=== PATIENT | male | born 1950 ===

== ENCOUNTER 2019-10-01 17:00 | Inpatient (IN) ==
[2019-10-01] MEDS ORDERED: IOPAMIDOL 100 ML BOTTLE IV ONE (17:01)
[2019-10-01] MEDS ORDERED: ASPIRIN 81 MG TAB.CHEW CHEWED ONE ×2 (17:15→17:17)
[2019-10-01] MEDS ORDERED: NITROGLYCERIN 0.4 MG TAB.SUBL SL PRN ×2 (17:15→21:46)
[2019-10-01] MEDS ORDERED: 0.9 % SODIUM CHLORIDE 1,000 ML IV ONE (17:15)
[2019-10-01] MEDS ORDERED: ASPIRIN 81 MG TAB.CHEW ONE (17:18)
--- NOTE | 2019-10-01 17:18 | Emergency Department Note ---
Chest Pain HPI General Chief Complaint: Chest Pain Stated Complaint: Chest pain Time Seen by Provider: 10/01/19 17:05 Source: patient and family Mode of arrival: wheelchair Limitations: no limitations History of Present Illness HPI Narrative: Narrative: 69-year-old male with a 2-day history of chest pain that started yesterday. No history of heart disease but he does have COPD and history of lung cancer. He had part of his right upper lobe taken out for that lung cancer. He sees the [facility] for primary care. He denies fever but does note shortness of breath. No GI symptoms. He is a type II diabetic but is not on insulin. He quit smoking 5 years ago Related Data Home Medications Medication Instructions Recorded Confirmed albuterol sulfate 2 puff INHALATION Q6H PRN 10/01/19 10/02/19 amlodipine 10 mg PO QDAY 10/01/19 10/02/19 aspirin 81 mg PO QDAY 10/01/19 10/02/19 atorvastatin 40 mg PO QHS 10/01/19 10/02/19 cholecalciferol (vitamin D3) 25 mcg PO QDAY 10/01/19 10/02/19 fluoxetine 20 mg PO QDAY 10/01/19 10/02/19 ipratropium-albuterol 3 ml INHALATION Q6H PRN 10/01/19 10/02/19 lisinopril 10 mg PO QDAY 10/01/19 10/02/19 metformin 500 mg PO BID 10/01/19 10/02/19 mometasone [Asmanex HFA] 2 puff INHALATION BID 10/01/19 10/02/19 tiotropium-olodaterol [Stiolto 2 puff INHALATION Q12 10/01/19 10/02/19 Respimat] Allergies Allergy/AdvReac Type Severity Reaction Status Date / Time No Known Drug Allergies Allergy Verified 10/01/19 17:00 Review of Systems ROS Narrative: Narrative: All systems ED: reviewed and negative except as stated. FOR[facility]LY [facility] Narrative Patient History Narrative: Narrative: Medical/Surgical/Family History All Active Problems (Updated 10/01/19 @ 19:45 by Juan Jose Jacques MD) Acute exacerbation of chronic obstructive pulmonary disease (Acute) COPD (chronic obstructive pulmonary disease) (Acute) Pneumonia (Acute) Hyperglycemia due to type 2 diabetes mellitus (Acute) Surgical History (Updated 10/01/19 @ 19:26 by Juan Jose Jacques MD) History of shoulder surgery (Acute) Status post lung surgery (Acute) Social History Smoking Status: Former smoker Exam Narrative Narrative: Narrative: Anxious and tachypneic. Normocephalic atraumatic. Conjunctive are clear sclerae white nonicteric. No nasal discharge or congest ion. Oropharynx is pink and moist. Neck is supple without lymphadenopathy or thyromegaly. Heart is regular rhythm but tachycardic. I cannot hear a murmur. Lungs with diffuse subtle crackles at the bases. Abdomen is soft nontender nondistended. No peritoneal signs or guarding. No pedal edema. Alert oriented able to answer questions appropriately General Limitations: no limitations Course Vital Signs Vital signs: Vital Signs Temperature 98.8 F 10/01/19 17:00 Pulse Rate 142 H 10/01/19 17:00 Respiratory Rate 34 H 10/01/19 17:00 Blood Pressure 210/111 10/01/19 17:00 Pulse Oximetry (%) 93 10/01/19 17:00 Temperature 96.7 F L 10/02/19 07:01 Pulse Rate 85 10/02/19 07:05 Respiratory Rate 26 H 10/02/19 07:05 Blood Pressure 105/64 10/02/19 07:01 Pulse Oximetry (%) 99 10/02/19 07:05 MDM MDM Narrative Medical decision making narrative: Narrative: On initial exam patient was tachycardic and tachypneic perhaps even a little bit diaphoretic although I did not see the diaphoresis personally-his initial complaint was chest pain. He was not hypoxic however. Work-up was ordered with imaging and laboratory. For his chest pain we gave him aspirin as well as nitroglycerin. He got a single dose of nitroglycerin which he says took away the chest pain but did not help with breathing. EKG showed some ST depression but no definitive ACS Found to have elevated blood sugar to over 500 so he was started on insulin boluses with then drip to follow. He does have a history of diabetes but is not insulin-dependent prior to this. He is on IV fluids Chest x-ray showed possible left lower lobe pneumonia but he continues have significant tachypnea and tachycardia-in addition to the chest pain so CTA is ordered. This shows bilateral pneumonia. We started Zosyn He also got a dose of duo nebs for COPD. Troponin was negative After finding the pneumonia and the significantly elevated blood sugars contacted hospitalist for admission. Discussed the case with Dr. Alcazar-he agreed to accept the patient for admission Lab Data Result diagrams: 10/01/19 17:21 10/02/19 05:04 Labs: Lab Results 10/01/19 10/01/19 10/01/19 Range/Units 17:17 17:21 17:21 WBC 19.2 H (4.50-11.00) K/mcL RBC 5.05 (4.63-6.08) M/mcL Hgb 15.8 (13.7-17.5) g/dL Hct 47.0 (40.1-51.0) % MCV 93.1 (80.0-100.0) fL MCH 31.3 (26.0-34.0) pg MCHC 33.6 (31.0-36.0) g/dL RDW 12.7 (11.5-14.5) % Plt Count 333 (140-440) K/mcL MPV 11.2 H (7.4-10.4) fL Gran % 89.4 H (38.0-78.0) % Lymph % (Auto) 6.4 L (15.5-49.0) % [place]ye % (Auto) 3.9 (1.0-12.0) % Eos % (Auto) 0.1 (0.0-7.0) % Baso % (Auto) 0.2 (0.0-2.0) % Gran # 17.21 H (1.80-8.00) K/mcL Lymph # (Auto) 1.23 L (1.50-4.80) K/mcL [place] # (Auto) 0.75 (0.10-0.90) K/mcL Eos # (Auto) 0.01 (0.00-0.70) K/mcL Baso # (Auto) 0.04 (0.00-0.30) K/mcL Total Counted Seg Neutrophils % (38-78) % Band Neutrophils % (0-10) % Lymphocytes % (15-49) % Monocytes % (Manual) (1-12) % Platelet Estimate (NORMAL) RBC Morphology (NORMAL) PT (11.9-14.5) sec INR (0.9-1.1) VBG Lactic Acid 3.3 H (0.5-2.0) mmol/L Sodium 129 L (133-145) mmol/L Potassium 4.8 (3.3-5.1) mmol/L Chloride 90 L (96-108) mmol/L Carbon Dioxide 14 L (22-30) mmol/L Anion Gap 25.0 H (8-16) BUN 15 (8-23) mg/dl Creatinine 1.0 (0.7-1.2) mg/dl GFR Calculation 75 Glucose 537 H* (70-105) mg/dL Osmolality (280-300) mOSM/kg Calcium 10.2 (8.6-10.4) mg/dl Total Bilirubin 0.9 (0.0-1.0) mg/dL AST 21 (0-37) U/l ALT 44 H (0-40) U/l Alkaline Phosphatase 83 (39-117) U/L Troponin T (0-0.03) ng/ml Total Protein 8.4 (5.9-8.4) gm/dL Albumin 4.2 (3.2-5.2) gm/dL Globulin 4.2 H (2.2-3.7) gm/dL Albumin/Globulin Ratio 1.0 (1.0-2.3) Lipase 24 (7-60) U/L Beta-Hydroxybutyrate (< 0.27) mmol/L Procalcitonin (<0.10) ng/mL Urine Color Urine Appearance Urine pH (5.0-9.0) Ur Specific [place] (1.000-1.035) Urine Protein (NEG) mg/dL Urine Glucose (UA) (NEG) mg/dL Urine Ketones (NEG) mg/dL Urine Occult Blood (<0.03) mg/dL Urine Nitrate (NEG) Urine Bilirubin (NEG) mg/dL Urine Urobilinogen (NEG) mg/dL Ur Leukocyte Esterase (NEG) /uL Urine RBC (0-1) /hpf Urine WBC (0-4) /hpf Ur Squamous Epith Cells (0-4) /hpf Urine Bacteria (0) /hpf Ur Culture Indicated? 10/01/19 10/01/19 10/01/19 Range/Units 17:21 17:21 17:21 WBC (4.50-11.00) K/mcL RBC (4.63-6.08) M/mcL Hgb (13.7-17.5) g/dL Hct (40.1-51.0) % MCV (80.0-100.0) fL MCH (26.0-34.0) pg MCHC (31.0-36.0) g/dL RDW (11.5-14.5) % Plt Count (140-440) K/mcL MPV (7.4-10.4) fL Gran % (38.0-78.0) % Lymph % (Auto) (15.5-49.0) % [place] % (Auto) (1.0-12.0) % Eos % (Auto) (0.0-7.0) % Baso % (Auto) (0.0-2.0) % Gran # (1.80-8.00) K/mcL Lymph # (Auto) (1.50-4.80) K/mcL [place] # (Auto) (0.10-0.90) K/mcL Eos # (Auto) (0.00-0.70) K/mcL Baso # (Auto) (0.00-0.30) K/mcL Total Counted Seg Neutrophils % (38-78) % Band Neutrophils % (0-10) % Lymphocytes % (15-49) % Monocytes % (Manual) (1-12) % Platelet Estimate (NORMAL) RBC Morphology (NORMAL) PT (11.9-14.5) sec INR (0.9-1.1) VBG Lactic Acid (0.5-2.0) mmol/L Sodium (133-145) mmol/L Potassium (3.3-5.1) mmol/L Chloride (96-108) mmol/L Carbon Dioxide (22-30) mmol/L Anion Gap (8-16) BUN (8-23) mg/dl Creatinine (0.7-1.2) mg/dl GFR Calculation Glucose (70-105) mg/dL Osmolality (280-300) mOSM/kg Calcium (8.6-10.4) mg/dl Total Bilirubin (0.0-1.0) mg/dL AST (0-37) U/l ALT (0-40) U/l Alkaline Phosphatase (39-117) U/L Troponin T < 0.01 (0-0.03) ng/ml Total Protein (5.9-8.4) gm/dL Albumin (3.2-5.2) gm/dL Globulin (2.2-3.7) gm/dL Albumin/Globulin Ratio (1.0-2.3) Lipase (7-60) U/L Beta-Hydroxybutyrate 4.17 H (< 0.27) mmol/L Procalcitonin 0.21 (<0.10) ng/mL Urine Color Urine Appearance Urine pH (5.0-9.0) Ur Specific [place] (1.000-1.035) Urine Protein (NEG) mg/dL Urine Glucose (UA) (NEG) mg/dL Urine Ketones (NEG) mg/dL Urine Occult Blood (<0.03) mg/dL Urine Nitrate (NEG) Urine Bilirubin (NEG) mg/dL Urine Urobilinogen (NEG) mg/dL Ur Leukocyte Esterase (NEG) /uL Urine RBC (0-1) /hpf Urine WBC (0-4) /hpf Ur Squamous Epith Cells (0-4) /hpf Urine Bacteria (0) /hpf Ur Culture Indicated? 10/01/19 10/01/19 10/01/19 Range/Units 17:21 17:21 17:22 WBC (4.50-11.00) K/mcL RBC (4.63-6.08) M/mcL Hgb (13.7-17.5) g/dL Hct (40.1-51.0) % MCV (80.0-100.0) fL MCH (26.0-34.0) pg MCHC (31.0-36.0) g/dL RDW (11.5-14.5) % Plt Count (140-440) K/mcL MPV (7.4-10.4) fL Gran % (38.0-78.0) % Lymph % (Auto) (15.5-49.0) % [place]ye % (Auto) (1.0-12.0) % Eos % (Auto) (0.0-7.0) % Baso % (Auto) (0.0-2.0) % Gran # (1.80-8.00) K/mcL Lymph # (Auto) (1.50-4.80) K/mcL [place] # (Auto) (0.10-0.90) K/mcL Eos # (Auto) (0.00-0.70) K/mcL Baso # (Auto) (0.00-0.30) K/mcL Total Counted 100 Seg Neutrophils % 87 H (38-78) % Band Neutrophils % 2 (0-10) % Lymphocytes % 9 L (15-49) % Monocytes % (Manual) 2 (1-12) % Platelet Estimate Normal (NORMAL) RBC Morphology Normal (NORMAL) PT 13.6 (11.9-14.5) sec INR 1.0 (0.9-1.1) VBG Lactic Acid (0.5-2.0) mmol/L Sodium (133-145) mmol/L Potassium (3.3-5.1) mmol/L Chloride (96-108) mmol/L Carbon Dioxide (22-30) mmol/L Anion Gap (8-16) BUN (8-23) mg/dl Creatinine (0.7-1.2) mg/dl GFR Calculation Glucose (70-105) mg/dL Osmolality 325 H (280-300) mOSM/kg Calcium (8.6-10.4) mg/dl Total Bilirubin (0.0-1.0) mg/dL AST (0-37) U/l ALT (0-40) U/l Alkaline Phosphatase (39-117) U/L Troponin T (0-0.03) ng/ml Total Protein (5.9-8.4) gm/dL Albumin (3.2-5.2) gm/dL Globulin (2.2-3.7) gm/dL Albumin/Globulin Ratio (1.0-2.3) Lipase (7-60) U/L Beta-Hydroxybutyrate (< 0.27) mmol/L Procalcitonin (<0.10) ng/mL Urine Color Urine Appearance Urine pH (5.0-9.0) Ur Specific [place] (1.000-1.035) Urine Protein (NEG) mg/dL Urine Glucose (UA) (NEG) mg/dL Urine Ketones (NEG) mg/dL Urine Occult Blood (<0.03) mg/dL Urine Nitrate (NEG) Urine Bilirubin (NEG) mg/dL Urine Urobilinogen (NEG) mg/dL Ur Leukocyte Esterase (NEG) /uL Urine RBC (0-1) /hpf Urine WBC (0-4) /hpf Ur Squamous Epith Cells (0-4) /hpf Urine Bacteria (0) /hpf Ur Culture Indicated? 10/01/19 Range/Units 17:44 WBC (4.50-11.00) K/mcL RBC (4.63-6.08) M/mcL Hgb (13.7-17.5) g/dL Hct (40.1-51.0) % MCV (80.0-100.0) fL MCH (26.0-34.0) pg MCHC (31.0-36.0) g/dL RDW (11.5-14.5) % Plt Count (140-440) K/mcL MPV (7.4-10.4) fL Gran % (38.0-78.0) % Lymph % (Auto) (15.5-49.0) % [place]ye % (Auto) (1.0-12.0) % Eos % (Auto) (0.0-7.0) % Baso % (Auto) (0.0-2.0) % Gran # (1.80-8.00) K/mcL Lymph # (Auto) (1.50-4.80) K/mcL [place] # (Auto) (0.10-0.90) K/mcL Eos # (Auto) (0.00-0.70) K/mcL Baso # (Auto) (0.00-0.30) K/mcL Total Counted Seg Neutrophils % (38-78) % Band Neutrophils % (0-10) % Lymphocytes % (15-49) % Monocytes % (Manual) (1-12) % Platelet Estimate (NORMAL) RBC Morphology (NORMAL) PT (11.9-14.5) sec INR (0.9-1.1) VBG Lactic Acid (0.5-2.0) mmol/L Sodium (133-145) mmol/L Potassium (3.3-5.1) mmol/L Chloride (96-108) mmol/L Carbon Dioxide (22-30) mmol/L Anion Gap (8-16) BUN (8-23) mg/dl Creatinine (0.7-1.2) mg/dl GFR Calculation Glucose (70-105) mg/dL Osmolality (280-300) mOSM/kg Calcium (8.6-10.4) mg/dl Total Bilirubin (0.0-1.0) mg/dL AST (0-37) U/l ALT (0-40) U/l Alkaline Phosphatase (39-117) U/L Troponin T (0-0.03) ng/ml Total Protein (5.9-8.4) gm/dL Albumin (3.2-5.2) gm/dL Globulin (2.2-3.7) gm/dL Albumin/Globulin Ratio (1.0-2.3) Lipase (7-60) U/L Beta-Hydroxybutyrate (< 0.27) mmol/L Procalcitonin (<0.10) ng/mL Urine Color Straw Urine Appearance Clear Urine pH 5.0 (5.0-9.0) Ur Specific [place] 1.032 (1.000-1.035) Urine Protein 30 A (NEG) mg/dL Urine Glucose (UA) >=500 A (NEG) mg/dL Urine Ketones 20 A (NEG) mg/dL Urine Occult Blood 0.03 A (<0.03) mg/dL Urine Nitrate Neg (NEG) Urine Bilirubin Neg (NEG) mg/dL Urine Urobilinogen Neg (NEG) mg/dL Ur Leukocyte Esterase Neg (NEG) /uL Urine RBC < 1 (0-1) /hpf Urine WBC < 1 (0-4) /hpf Ur Squamous Epith Cells 0 (0-4) /hpf Urine Bacteria 0 (0) /hpf Ur Culture Indicated? No Radiology Data Radiology results reviewed: Yes I reviewed the patient's radiology results. Radiology results narrative: Chest x-ray shows left lower lung pneumonia Chest CTA was ordered for chest pain tachycardia-this shows bilateral lower lung pneumonia and underlying COPD but no PE EKG Data EKG #1: EKG attestation: Yes I reviewed and interpreted this EKG. EKG results narrative: EKG shows a rate of 136 sinus tachycardia left atrial abnormality. ST depression noted in V4 5 and 6. Inverted T waves in 1 and aVL. Discharge Plan Patient/Caregiver Discharge Instructions Pt seen by WILDLIFE CONTROL OPERATOR/PA only: No Clinical Impression: Acute exacerbation of chronic obstructive pulmonary disease Pneumonia Qualifiers: Pneumonia type: due to unspecified organism Laterality: left Lung location: lower lobe of lung Qualified Code(s): J18.9 - Pneumonia, unspecified organism Hyperglycemia due to type 2 diabetes mellitus Qualifiers: Diabetes mellitus mcc insulin use: without intermediate frame tender use Qualified Code(s): E11.65 - Type 2 diabetes mellitus with hyperglycemia Patient Disposition: Xfer As Inpt ([facility]) Discharge Date/Time: 10/01/19 21:51
--- NOTE | 2019-10-01 17:36 | XRay Report ---
HISTORY: Chest pain FINDINGS: There is a small alveolar infiltrate at the left lung base. It is located Behind the heart and above the diaphragm. This is new since 05/05/08. Subtle increased interstitial lung markings are present medially in the right lung base. The mid and upper lung ramos are clear. The heart size is normal. The aorta is mildly tortuous. No pleural effusion is present. IMPRESSION: Small left lower lobe infiltrate which may be pneumonia Interpreted and Authenticated by: Cole, Jaime 10/01/19
[2019-10-01] MEDS ORDERED: IPRATROPIUM/ALBUTEROL 3 ML AMPUL.NEB NEB ONE (18:14)
[2019-10-01] MEDS ORDERED: PIPERACILLIN SODIUM/TAZOBACTAM 3.375 GM in DEXTROSE 5% IN WATER 50 ML IV ONE (18:14)
[2019-10-01 18:23] LABS: Basophils # (Auto) 0.04 K/mcL (0.00-0.30); Basophils % (Auto) 0.2 % (0.0-2.0); Eosinophils # (Auto) 0.01 K/mcL (0.00-0.70); Eosinophils % (Auto) 0.1 % (0.0-7.0); Granulocytes % (Auto) 89.4 % (38.0-78.0); Hemoglobin 15.8 g/dL (13.7-17.5); Lymphocytes # (Auto) 1.23 K/mcL (1.50-4.80); Lymphocytes % (Auto) 6.4 % (15.5-49.0); Mean Cell Volume 93.1 fL (80.0-100.0); Mean Corpuscular HGB Conc 33.6 g/dL (31.0-36.0); Mean Platelet Volume 11.2 fL (7.4-10.4); Monocytes # (Auto) 0.75 K/mcL (0.10-0.90); Monocytes % (Auto) 3.9 % (1.0-12.0); Platelet Count 333 K/mcL (140-440); RBC 5.05 M/mcL (4.63-6.08); Red Cell Distribution Width 12.7 % (11.5-14.5); WBC 19.2 K/mcL (4.50-11.00)
[2019-10-01 18:34] LABS: Prothrombin Time 13.6 sec (11.9-14.5)
[2019-10-01 18:42] LABS: ALT/SGPT 44 U/l (0-40); AST/SGOT 21 U/l (0-37); Albumin 4.2 gm/dL (3.2-5.2); Alkaline Phosphatase 83 U/L (39-117); Bilirubin,Total 0.9 mg/dL (0.0-1.0); Blood Urea Nitrogen 15 mg/dl (8-23); Calcium 10.2 mg/dl (8.6-10.4); Carbon Dioxide 14 mmol/L (22-30); Globulin 4.2 gm/dL (2.2-3.7); Glomerular Filtration Rate 75
[2019-10-01 18:49] LABS: Chloride 90 mmol/L (96-108); Glucose 537 mg/dL (70-105)
[2019-10-01] MEDS ORDERED: INSULIN REGULAR, HUMAN 1 UNIT/0.01 ML UNIT IV ONE (18:51)
[2019-10-01] MEDS ORDERED: INSULIN REGULAR, HUMAN 50 UNIT in 0.9 % SODIUM CHLORIDE 99.5 ML IV SCH ×3 (19:15→21:46)
[2019-10-01] MEDS ORDERED: INSULIN REGULAR, HUMAN 50 UNIT in 0.9 % SODIUM CHLORIDE 99.5 ML IV ONE (19:48)
[2019-10-01] MEDS ORDERED: LABETALOL 5 MG/ML ML IV PRN ×2 (20:22→21:46)
--- NOTE | 2019-10-01 20:51 | Internal Med History&Physical ---
HPI History of Present Illness Patient information: Note initiated : 10/01/19 at 8:40 pm Service Date, if different from initiated Date: [] Patient: Luis Carlos Bran 69 y/o M admitted on for Chest pain. Chief Complaint: [] History of present illness: Mr. Bran is a 69 year old M prsents to the ED with pains of anterior chest pain across entire chest wall rating to back and shortness of breath progressing for last 3 days States the chest pain is sharp and worsened with his cough. He has a chronic cough, but the quality of such has not changed. In the ED with oxygen and subsiding of cough his chest pain improved. She is obtained from him and his who states that he typically struggles with oxygen and was going to be evaluated for home oxygen but this was unusual and that it continued to progress and get worse and with each day. In the ED he was found to be hypertensive, tachycardic, and tachypneic in the ED. Was placed on several liters of oxygen in the ED. Patient did miss his blood pressure medication today. He does not adhere to a diabetic diet, his blood sugars commonly in the 300s. He is on metformin daily. He did have an episode of nausea vomiting x1 while in the car riding over here and felt it was related to motion sickness. Currently has no nausea. Does have occasional headaches. Does have chills but no fevers. Troponin was unremarkable. EKG showed sinus tach and did have some depression in anterior lateral leads. No old EKGs to compare. CTA of the chest showed no PE but did show bilateral lower lobe pneumonia greater on the left. He does have a history of COPD and lung cancer but is not on oxygen at home. As mentioned above is being evaluated outpatient for oxygen. He was also found to have a leukocytosis and an acidosis with elevated lactate 3.3. Also elevated beta hydroxybutyric acid and a blood glucose of 535. ABG had a normal pH. Review of Systems: Positives as above. Denies fever/abdominal pain/diarrhea. Remaining 10 point review of system reviewed negative. PFSH PFS Surgical History (Updated 10/01/19 @ 19:26 by Juan Jose Jacques MD) History of shoulder surgery (Acute) Status post lung surgery (Acute) Social History (Updated 10/01/19 @ 20:45 by Ziggy Reinaldo [place], DO) smoking status: Former smoker additional history: Past medical history: Diabetes COPD follows with Dr. 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 Depression Past surgical history: Resection of lung cancer right lung surgery of the shoulder Family history: Mother breast cancer Father diabetes Social history: Patient quit smoking 5 years ago Denies alcohol use Lives at home [facility] MEDS/ALLERGIES Home Medications and Allergies Home Medications Medication Instructions Recorded Confirmed Type albuterol sulfate 2 puff INHALATION Q6H PRN 10/01/19 10/01/19 History amlodipine 10 mg PO QDAY 10/01/19 10/01/19 History aspirin 81 mg PO QDAY 10/01/19 10/01/19 History atorvastatin 40 mg PO QHS 10/01/19 10/01/19 History cholecalciferol (vitamin D3) 25 mcg PO QDAY 10/01/19 10/01/19 History fluoxetine 20 mg PO QDAY 10/01/19 10/01/19 History ipratropium-albuterol 3 ml INHALATION Q6H PRN 10/01/19 10/01/19 History lisinopril 10 mg PO QDAY 10/01/19 10/01/19 History metformin 500 mg PO BID 10/01/19 10/01/19 History mometasone [Asmanex HFA] 2 puff INHALATION BID 10/01/19 10/01/19 History tiotropium-olodaterol [Stiolto 2 puff INHALATION Q12 10/01/19 10/01/19 History Respimat] Allergies Allergy/AdvReac Type Severity Reaction Status Date / Time No Known Drug Allergies Allergy Verified 10/01/19 17:00 EXAM Constitutional Vitals: Temp Pulse Resp BP Pulse Ox 98.8 F 128 H 33 H 172/101 97 10/01/19 17:00 10/01/19 19:39 10/01/19 19:39 10/01/19 19:39 10/01/19 19:39 Exam: General: Alert, Awake, No acute Distress Eyes/N/T: EOMI, PERRL, dry MM Head/Neck: neck supple, normocephalic atraumatic CV: Tachycardic but regular, No murmurs, normal s1/s2 Pulm: severely diminished b/l, mild basilar rhonchi, no wheezing, tachypnea Abd: soft, nontender, +BS x4 Ext: no clubbing/cyanosis/edema Neuro: Alert, no focal deficits, moves all extremities, CN 2-12 grossly intact, symmetrical strength b/l upper/lower, sensations intact b/l upper/lower Skin: warm/dry DATA Data Completed and Pending Labs on day of discharge: Labs from last 24 hours 10/01/19 10/01/19 10/01/19 17:44 17:22 17:21 WBC RBC Hgb Hct MCV MCH MCHC RDW Plt Count MPV Gran % Lymph % (Auto) [place] % (Auto) Eos % (Auto) Baso % (Auto) Gran # Lymph # (Auto) [place] # (Auto) Eos # (Auto) Baso # (Auto) Total Counted Band Neutrophils % Platelet Estimate RBC Morphology PT 13.6 INR 1.0 VBG Lactic Acid Sodium Potassium Chloride Carbon Dioxide Anion Gap BUN Creatinine GFR Calculation Glucose Osmolality Pending Calcium Total Bilirubin AST ALT Alkaline Phosphatase Troponin T Total Protein Albumin Globulin Albumin/Globulin Ratio Lipase Beta-Hydroxybutyrate Procalcitonin Urine Color Pending Urine Appearance Pending Urine pH Pending Ur Specific [place] Pending Urine Protein Pending Urine Glucose (UA) Pending Urine Ketones Pending Urine Occult Blood Pending Urine Nitrate Pending Urine Bilirubin Pending Urine Urobilinogen Pending Ur Leukocyte Esterase Pending 10/01/19 10/01/19 10/01/19 17:21 17:21 17:21 WBC RBC Hgb Hct MCV MCH MCHC RDW Plt Count MPV Gran % Lymph % (Auto) [place] % (Auto) Eos % (Auto) Baso % (Auto) Gran # Lymph # (Auto) [place] # (Auto) Eos # (Auto) Baso # (Auto) Total Counted Pending Band Neutrophils % Not Reportable Platelet Estimate Pending RBC Morphology Pending PT INR VBG Lactic Acid Sodium Potassium Chloride Carbon Dioxide Anion Gap BUN Creatinine GFR Calculation Glucose Osmolality Calcium Total Bilirubin AST ALT Alkaline Phosphatase Troponin T Total Protein Albumin Globulin Albumin/Globulin Ratio Lipase Beta-Hydroxybutyrate 4.17 H Procalcitonin Pending Urine Color Urine Appearance Urine pH Ur Specific [place] Urine Protein Urine Glucose (UA) Urine Ketones Urine Occult Blood Urine Nitrate Urine Bilirubin Urine Urobilinogen Ur Leukocyte Esterase 10/01/19 10/01/19 10/01/19 17:21 17:21 17:21 WBC 19.2 H RBC 5.05 Hgb 15.8 Hct 47.0 MCV 93.1 MCH 31.3 MCHC 33.6 RDW 12.7 Plt Count 333 MPV 11.2 H Gran % 89.4 H Lymph % (Auto) 6.4 L [place] % (Auto) 3.9 Eos % (Auto) 0.1 Baso % (Auto) 0.2 Gran # 17.21 H Lymph # (Auto) 1.23 L [place] # (Auto) 0.75 Eos # (Auto) 0.01 Baso # (Auto) 0.04 Total Counted Band Neutrophils % Platelet Estimate RBC Morphology PT INR VBG Lactic Acid Sodium 129 L Potassium 4.8 Chloride 90 L Carbon Dioxide 14 L Anion Gap 25.0 H BUN 15 Creatinine 1.0 GFR Calculation 75 Glucose 537 H* Osmolality Calcium 10.2 Total Bilirubin 0.9 AST 21 ALT 44 H Alkaline Phosphatase 83 Troponin T < 0.01 Total Protein 8.4 Albumin 4.2 Globulin 4.2 H Albumin/Globulin Ratio 1.0 Lipase 24 Beta-Hydroxybutyrate Procalcitonin Urine Color Urine Appearance Urine pH Ur Specific [place] Urine Protein Urine Glucose (UA) Urine Ketones Urine Occult Blood Urine Nitrate Urine Bilirubin Urine Urobilinogen Ur Leukocyte Esterase 10/01/19 17:17 WBC RBC Hgb Hct MCV MCH MCHC RDW Plt Count MPV Gran % Lymph % (Auto) [place] % (Auto) Eos % (Auto) Baso % (Auto) Gran # Lymph # (Auto) [place] # (Auto) Eos # (Auto) Baso # (Auto) Total Counted Band Neutrophils % Platelet Estimate RBC Morphology PT INR VBG Lactic Acid 3.3 H Sodium Potassium Chloride Carbon Dioxide Anion Gap BUN Creatinine GFR Calculation Glucose Osmolality Calcium Total Bilirubin AST ALT Alkaline Phosphatase Troponin T Total Protein Albumin Globulin Albumin/Globulin Ratio Lipase Beta-Hydroxybutyrate Procalcitonin Urine Color Urine Appearance Urine pH Ur Specific [place] Urine Protein Urine Glucose (UA) Urine Ketones Urine Occult Blood Urine Nitrate Urine Bilirubin Urine Urobilinogen Ur Leukocyte Esterase A/P Narrative A/P Narrative: A: *PNA: *Acute respiratory failure: *SIRS: *Metabolic acidosis/lactic acidosis, mixed respiratory alkalosis from compensating: likely from hypoxia/dka - *DM with DKA: -only on metformin at home, A1c *Pseudohyponatremia: *HTN Urgency vs Emergency if caused ST changes on EKG: CTA chest no dissection -Chest pain MSK/pleuritic *COPD with possible exacerbation: Follows with Dr. Delgado, being evaluated outpatient for home oxygen *h/o NSCLC: *Depression: P: -Rocephin/Azithro, pending SC/BC -supp O2 wean off if able -insulin gtt, monitor electrolytes -IVF's and f/u lactate -UA -A1c -restart BP meds and prn IV - -PT/OT -ppx: Lovenox DNR Time Spent With Patient Time: Total time spent is greater than 50% in coordination of care (as documented) at patient's floor/unit and/or counseling patient:
[2019-10-01 21:20] LABS: Appearance,Urine CLEAR; Bacteria,Urine 0 /hpf (0); Bilirubin,Urine NEG (NEG); Color,Urine STRAW; Culture Indicated,Urine NO; Glucose,Urine (UA) >=500 mg/dL (NEG); Ketones,Urine 20 mg/dL (NEG); Leukocyte Esterase,Urine NEG /uL (NEG); Nitrate,Urine NEG (NEG); Protein,Urine 30 mg/dL (NEG); Specific Gravity,Urine 1.032 (1.000-1.035); Urine Blood 0.03 mg/dL (<0.03); Urine RBC < 1 /hpf (0-1); Urine Squamous Epithelial Cell 0 /hpf (0-4); Urine WBC < 1 /hpf (0-4); Urobilinogen,Urine NEG (NEG)
[2019-10-01] MEDS ORDERED: POTASSIUM CHLORIDE 40 MEQ in DEXTROSE 5% IN WATER 500 ML IV PRN ×2 (21:22→21:46)
[2019-10-01] MEDS ORDERED: MAGNESIUM SULFATE 2 GM/50 ML BAG IV PRN ×2 (21:22→21:46)
[2019-10-01] MEDS ORDERED: POTASSIUM CHLORIDE 20 MEQ TABLET PO PRN ×2 (21:22→21:46)
[2019-10-01] MEDS ORDERED: ACETAMINOPHEN 325 MG TABLET PO PRN (21:46)
[2019-10-01] MEDS ORDERED: ONDANSETRON 4 MG/2 ML VIAL IV PRN (21:46)
[2019-10-01] MEDS ORDERED: LACTATED RINGERS 1,000 ML IV SCH (21:46)
[2019-10-01 21:48] LABS: Band Neutrophils % 2 % (0-10); Lymphocytes % 9 % (15-49); Monocytes % (Manual) 2 % (1-12); Platelet Estimate NORMAL (NORMAL); RBC Morphology NORMAL (NORMAL); Segmented Neutrophils % 87 % (38-78)
[2019-10-01] MEDS: AZITHROMYCIN 500 MG in DEXTROSE 5% IN WATER 250 ML IV SCH ×2 (22:46→23:01)
[2019-10-01 22:50] LABS: ALT/SGPT 39 U/l (0-40); AST/SGOT 20 U/l (0-37); Albumin 3.7 gm/dL (3.2-5.2); Albumin/Globulin Ratio 0.9 (1.0-2.3); Alkaline Phosphatase 83 U/L (39-117); Bilirubin,Direct 0.2 mg/dL (0.0-0.3); Bilirubin,Total 0.9 mg/dL (0.0-1.0); Blood Urea Nitrogen 14 mg/dl (8-23); Calcium 9.6 mg/dl (8.6-10.4); Chloride 98 mmol/L (96-108); Glomerular Filtration Rate 60; Glucose 341 mg/dL (70-105); Lactate Dehydrogenase 191 U/L (94-250); Phosphorous 2.8 mg/dL (2.7-4.5); Triglycerides 201 mg/dl (<150); Uric Acid 5.3 mg/dL (2.5-8.0)
[2019-10-01 22:56] LABS: Carbon Dioxide 18 mmol/L (22-30)
[2019-10-01] MEDS ORDERED: INSULIN REGULAR, HUMAN 1 UNIT/0.01 ML UNIT ONE (23:12)
[2019-10-01] MEDS: LISINOPRIL 10 MG TABLET PO SCH (23:18)
[2019-10-01] MEDS: ATORVASTATIN 40 MG TABLET PO SCH (23:18)
[2019-10-01] MEDS: DOCUSATE SODIUM 100 MG CAPSULE PO SCH (23:18)
[2019-10-01] MEDS: cefTRIAXone 2 GM in DEXTROSE 5% IN WATER 50 ML IV SCH (23:34)
[2019-10-01] MEDS: cefTRIAXone 2 GM VIAL ONE (23:34)
[2019-10-01] MEDS: amLODIPine 10 MG TABLET PO SCH (23:37)
[2019-10-02 00:05] LABS: Estimated Average Glucose(eAG) 375 mg/dL; Hemoglobin A1C 14.7 % HGB (4.0-6.0)
[2019-10-02] MEDS ORDERED: cefTRIAXone 2 GM VIAL ONE (00:25)
[2019-10-02] MEDS: cefTRIAXone 2 GM VIAL ONE (00:33)
[2019-10-02] MEDS: DEXTROSE 5%-NS 1,000 ML IV SCH ×3 (01:12→12:23)
[2019-10-02] MEDS: LEVALBUTEROL 0.63 MG/3 ML AMPUL.NEB NEB SCH ×4 (01:17→19:46)
[2019-10-02] MEDS ORDERED: INSULIN REGULAR, HUMAN 1 UNIT/0.01 ML UNIT ONE (02:16)
[2019-10-02] MEDS: PANTOPRAZOLE 40 MG TABLET PO SCH (07:16)
--- NOTE | 2019-10-02 07:28 | Internal Med Progress Note ---
SUBJECTIVE Subjective Patient information: Note initiated : 10/02/19 at 7:25 am Service Date, if different from initiated Date: [] Patient: Luis Carlos Bran 69 y/o M admitted on 10/01/19 for Chest pain. Chief Complaint: [] Interval history: Narrative: Mr. Bran is a 69 year old M prsents to the ED with pains of anterior chest pain across entire chest wall rating to back and shortness of breath progressing for last 3 days States the chest pain is sharp and worsened with his cough. He has a chronic cough, but the quality of such has not changed. In the ED with oxygen and subsiding of cough his chest pain improved. She is obtained from him and his who states that he typically struggles with oxygen and was going to be evaluated for home oxygen but this was unusual and that it continued to progress and get worse and with each day. In the ED he was found to be hypertensive, tachycardic, and tachypneic in the ED. Was placed on several liters of oxygen in the ED. Patient did miss his blood pressure medication today. He does not adhere to a diabetic diet, his blood sugars commonly in the 300s. He is on metformin daily. He did have an episode of nausea vomiting x1 while in the car riding over here and felt it was related to motion sickness. Currently has no nausea. Does have occasional headaches. Does have chills but no fevers. Troponin was unremarkable. EKG showed sinus tach and did have some depression in anterior lateral leads. No old EKGs to compare. CTA of the chest showed no PE but did show bilateral lower lobe pneumonia greater on the left. He does have a history of COPD and lung cancer but is not on oxygen at home. As mentioned above is being evaluated outpatient for oxygen. He was also found to have a leukocytosis and an acidosis with elevated lactate 3.3. Also elevated beta hydroxybutyric acid and a blood glucose of 535. ABG had a normal pH. 7/2 Patient slept okay. Feeling little better today. Breathing better today deeper and decreased oxygen need. Occasional chest pain with coughing but otherwise unremarkable. Did have a fever overnight. Does not feel subjective fevers but has some c hills. I gap closed. Will start subcu insulin titrate accordingly. Hemoglobin A1c 14.7, patient is only been on metformin and does not adhere to a diabetic diet. Review of Systems: denies headache/nausea/vomiting/chest or abdominal pain/diarrhea. Otherwise see above. Constitutional Vitals: Vital Signs Temp Pulse Resp BP Pulse Ox 96.7 F L 85 26 H 105/64 99 10/02/19 07:01 10/02/19 07:05 10/02/19 07:05 10/02/19 07:01 10/02/19 07:05 Period Temp Pulse Resp BP Sys/Valdes Pulse Ox Last 24 Hr 96.7 F-99.6 F 74-142 17-51 105-210/64-135 91-100 Intake and Output 10/01/19 10/02/19 10/02/19 21:59 05:59 13:59 Intake Total 870 663 948 Output Total 250 Balance 870 663 698 Weight 96.162 kg Intake & Output: Intake & Output 10/01/19 10/02/19 10/02/19 21:59 05:59 13:59 Intake Total 870 663 948 Output Total 250 Balance 870 663 698 Weight 96.162 kg Intake: IV 870 663 948 Sodium Chloride 0.9% 1,000 ml @ 800 Wide Open IV .Q0M ONE Rx#: [id number] Zithromax 500 mg In Dextrose 5% 250 in Water 250 ml @ 250 mls/hr IV Q24H [facility] Rx#:[id number] Dextrose 5%-Ns IV Solution 1, 891 000 ml @ 180 mls/hr IV .Q5H34M [facility] Rx#:[id number] HumuLIN R 50 UNIT In Sodium 20 23 57 Chloride 0.9% 99.5 ml @ 5 UNIT/ HR 10 mls/hr IV ONCE ONE Rx#: [id number] Lactated Ringers 1,000 ml @ 180 390 mls/hr IV .Q5H34M [facility] Rx#: [id number] Zosyn 3.375 gm In Dextrose 5% 50 in Water 50 ml @ 100 mls/hr IV ONCE ONE Rx#:[id number] Output: Void Amount 250 Other: Urine Appearance Clear Urine Color Light Aurora Urine Odor Normal Exam: General: Alert, Awake, No acute Distress Eyes/N/T: EOMI, Head/Neck: neck supple, CV: RRR, No murmurs, Pulm: diminished b/l but improved, mild basilar rhonchi, mild exp wheezing b/l, prolonged exp phase Abd: soft, nontender, +BS x4 Ext: no clubbing/cyanosis/edema Neuro: Alert, no focal deficits, moves all extremities, Skin: warm/dry OBJ DATA Labs CBC & Chem 7: 10/02/19 07:42 10/02/19 05:04 Labs: Abnormal Lab Results 10/01/19 10/01/19 10/01/19 22:00 17:44 17:21 WBC MPV Gran % Lymph % (Auto) Gran # Lymph # (Auto) Seg Neutrophils % Lymphocytes % VBG Lactic Acid Sodium Chloride Carbon Dioxide 18 L Anion Gap 18.0 H Glucose 341 H Hemoglobin A1c 14.7 H Osmolality 325 H ALT Globulin 4.0 H Albumin/Globulin Ratio 0.9 L Triglycerides 201 H Beta-Hydroxybutyrate Urine Protein 30 A Urine Glucose (UA) >=500 A Urine Ketones 20 A Urine Occult Blood 0.03 A 10/01/19 10/01/19 10/01/19 17:21 17:21 17:21 WBC MPV Gran % Lymph % (Auto) Gran # Lymph # (Auto) Seg Neutrophils % 87 H Lymphocytes % 9 L VBG Lactic Acid Sodium 129 L Chloride 90 L Carbon Dioxide 14 L Anion Gap 25.0 H Glucose 537 H* Hemoglobin A1c Osmolality ALT 44 H Globulin 4.2 H Albumin/Globulin Ratio Triglycerides Beta-Hydroxybutyrate 4.17 H Urine Protein Urine Glucose (UA) Urine Ketones Urine Occult Blood 10/01/19 10/01/19 17:21 17:17 WBC 19.2 H MPV 11.2 H Gran % 89.4 H Lymph % (Auto) 6.4 L Gran # 17.21 H Lymph # (Auto) 1.23 L Seg Neutrophils % Lymphocytes % VBG Lactic Acid 3.3 H Sodium Chloride Carbon Dioxide Anion Gap Glucose Hemoglobin A1c Osmolality ALT Globulin Albumin/Globulin Ratio Triglycerides Beta-Hydroxybutyrate Urine Protein Urine Glucose (UA) Urine Ketones Urine Occult Blood Meds: Medications Acetaminophen (Tylenol) 650 mg PO Q4-6HP PRN PRN Reason: PAIN/FEVER > 101 Amlodipine Besylate (Norvasc) 10 mg PO QDAY [facility] Last Admin: 10/01/19 23:37 Dose: Not Given Documented by: Aspirin (Aspirin) 81 mg PO DAILY [facility] Atorvastatin Calcium (Lipitor) 40 mg PO QHS [facility] Last Admin: 10/01/19 23:18 Dose: Not Given Documented by: Budesonide (Pulmicort) 0.5 mg NEB Q12 [facility] Diagnostic Test (Pha) (Accu-Chek) 1 each FS Q1 [facility] Last Admin: 10/02/19 06:59 Dose: 1 each Documented by: Docusate Sodium (Colace) 100 mg PO BID [facility] Last Admin: 10/01/19 23:18 Dose: Not Given Documented by: Enoxaparin Sodium (Lovenox) 40 mg SQ DAILY [facility] Fluoxetine HCl (Prozac) 20 mg PO DAILY [facility] Magnesium Sulfate (Magnesium Sulfate) 2 gm in 50 mls @ 50 mls/hr IV UD PRN PRN Reason: Magnesium </= 1.6 Potassium Chloride 40 meq/ (Dextrose) 520 mls @ 130 mls/hr IV UD PRN PRN Reason: Potassium < 3 Insulin Human Regular 50 unit/ (Sodium Chloride) 100 mls @ 2 mls/hr IV DUR [facility]; Protocol Ceftriaxone Sodium 2 gm/ (Dextrose) 50 mls @ 100 mls/hr IV Q24H [facility]; Protocol Last Admin: 10/01/19 23:34 Dose: Not Given Documented by: Azithromycin 500 mg/ Dextrose 250 mls @ 250 mls/hr IV Q24H [facility]; Protocol Stop: 10/03/19 21:59 Last Infusion: 10/02/19 00:17 Dose: Infused Documented by: Dextrose/Sodium Chloride (Dextrose 5%-Ns Iv Solution) 1,000 mls @ 180 mls/hr IV .Q5H34M [facility] Stop: 10/04/19 10:00 Last Admin: 10/02/19 06:09 Dose: 180 mls/hr Documented by: Labetalol HCl (Trandate) 0 mg IV Q2HP PRN PRN Reason: Hypertension Levalbuterol HCl (Xopenex) 0.63 mg NEB Q6HRT [facility] Last Admin: 10/02/19 01:17 Dose: 0.63 mg Documented by: Lisinopril (Zestril) 10 mg PO QDAY [facility] Last Admin: 10/01/19 23:18 Dose: Not Given Documented by: Nitroglycerin (Nitrostat) 0.4 mg SL Q5M PRN PRN Reason: Chest Pain Ondansetron HCl (Zofran) 4 mg IV Q4-6HP PRN PRN Reason: Nausea And Vomiting Pantoprazole Sodium (Protonix) 40 mg PO QAMAC [facility] Last Admin: 10/02/19 07:16 Dose: 40 mg Documented by: Mometasone [Asmanex (Hfa] Inhaler) 2 dose INH BID JON Tiotropium- Olodaterol [Stiolto Respimat] Inh 2 dose INH Q12 [facility] Potassium Chloride (Kdur) 40 meq PO UD PRN PRN Reason: Potssium is 3-3.5 A/P Narrative A/P Narrative: A: *PNA: *SIRS: improved *Acute respiratory failure: -taken off O2 this morning while in bed, will monitor closely for O2 need *AECOPD with possible exacerbation: Follows with Dr. Delgado, being evaluated outpatient for home oxygen *Metabolic acidosis/lactic acidosis, mixed respiratory alkalosis from compensating: likely from hypoxia/dka -resolved *DM with DKA: A1c 14.7 -only on metformin at home, A1c *Pseudohyponatremia: resolved *HTN Urgency vs Emergency if caused ST changes on EKG(ekg changes normalized on f/u): CTA chest no dissection -Chest pain MSK/pleuritic. pt did miss taking home meds on morning of admit -troponin negative -Improved *h/o NSCLC: *Depression: P: -Rocephin/Azithro, pending SC/BC -supp O2 wean prn, RT to asses for home O2 while ambulating prior to d/c -Steroids(wean), nebs, home IH's -IS/Acapella -insulin gtt off to SQ(titrate), cont metformin, -d/c ivf -restarted BP meds and prn IV -f/u ekg -PT/OT -ppx: Lovenox DNR Time Spent With Patient Time: Total time spent is greater than 50% in coordination of care (as documented) at patient's floor/unit and/or counseling patient:
--- NOTE | 2019-10-02 07:47 | Cat Scan Report ---
History: Chest pain, tachycardia and shortness of breath TECHNIQUE: The chest was imaged during pulmonary arterial phase following injection of intravenous nonionic contrast. Sagittal, coronal and axial MIPS images were created. The radiation exposure was limited using dose reduction technology. FINDINGS: The pulmonary arteries are normal with no intraluminal filling defects. The aorta is normal in caliber with no aneurysm or dissection. There are multiple calcified plaques along the wall of the aorta is also several plaques in the coronary arteries. The heart size is normal. Patient has mild emphysema throughout both lungs with the greatest involvement in the upper lobes. Superimposed upon this there are patchy alveolar infiltrates in the lingula and left lower lobe with milder involvement in the medial basal segment of the right lower lobe. There are also a few bands of scar tissue in both lungs. There is no evidence of pulmonary mass. No pleural effusions present. There are several small reactive lymph nodes in the mediastinum. Mild bronchial wall thickening is present in the hilar region bilaterally due to chronic bronchitis. No intrabronchial mass or mucous plugging are seen. Moderate generalized fatty infiltration is present in the liver. There stranding of the perirenal fat bilaterally but no hydronephrosis. IMPRESSION: Emphysema and pneumonia No evidence of pulmonary emboli Dr. Jacques was called with the results Interpreted and Authenticated by: Jaime Galvan 10/02/19
[2019-10-02 07:50] LABS: ALT/SGPT 29 U/l (0-40); AST/SGOT 16 U/l (0-37); Albumin 3.3 gm/dL (3.2-5.2); Alkaline Phosphatase 72 U/L (39-117); Bilirubin,Total 0.4 mg/dL (0.0-1.0); Blood Urea Nitrogen 13 mg/dl (8-23); Calcium 8.9 mg/dl (8.6-10.4); Carbon Dioxide 21 mmol/L (22-30); Chloride 104 mmol/L (96-108); Globulin 3.3 gm/dL (2.2-3.7); Glomerular Filtration Rate 86; Glucose 164 mg/dL (70-105); Lactate Dehydrogenase 180 U/L (94-250); Phosphorous 2.6 mg/dL (2.7-4.5); Triglycerides 174 mg/dl (<150); Uric Acid 4.9 mg/dL (2.5-8.0)
[2019-10-02 08:02] LABS: Bilirubin,Direct < 0.2 mg/dL (0.0-0.3)
[2019-10-02] MEDS ORDERED: DEXTROSE 50% 50 ML VIAL IV PRN (08:50)
[2019-10-02] MEDS ORDERED: DEXTROSE 31 GM ORAL.SUSP PO PRN (08:50)
[2019-10-02 08:51] LABS: Hemoglobin 12.4 g/dL (13.7-17.5); Mean Cell Volume 94.6 fL (80.0-100.0); Mean Corpuscular HGB Conc 33.5 g/dL (31.0-36.0); Mean Platelet Volume 10.5 fL (7.4-10.4); Platelet Count 257 K/mcL (140-440); RBC 3.91 M/mcL (4.63-6.08); Red Cell Distribution Width 13.1 % (11.5-14.5); WBC 14.7 K/mcL (4.50-11.00)
[2019-10-02] MEDS ORDERED: INSULIN GLARGINE, HUMAN 1 UNIT/0.01 ML SQ SCH (09:00)
[2019-10-02] MEDS ORDERED: MOMETASONE INH SCH (09:00)
[2019-10-02] MEDS ORDERED: ASPIRIN 81 MG TAB.CHEW PO SCH (09:00)
[2019-10-02] MEDS ORDERED: ENOXAPARIN 40 MG/0.4 ML SYRINGE SQ SCH (09:00)
[2019-10-02] MEDS ORDERED: FLUoxetine HCL 20 MG CAPSULE PO SCH (09:00)
[2019-10-02] MEDS: BUDESONIDE 0.5 MG/2 ML AMPUL.NEB NEB SCH ×2 (09:11→19:46)
[2019-10-02 09:16] LABS: Lymphocytes % 22 % (15-49); Monocytes % (Manual) 4 % (1-12); Platelet Estimate NORMAL (NORMAL); RBC Morphology NORMAL (NORMAL); Segmented Neutrophils % 74 % (38-78)
[2019-10-02] MEDS: LISINOPRIL 10 MG TABLET PO SCH (09:32)
[2019-10-02] MEDS: DOCUSATE SODIUM 100 MG CAPSULE PO SCH ×2 (09:32→20:37)
[2019-10-02] MEDS: amLODIPine 10 MG TABLET PO SCH (09:32)
[2019-10-02] MEDS: methylPREDNISolone SOD SUCC 125 MG/2 ML VIAL IV SCH ×2 (09:33→20:37)
[2019-10-02] MEDS: metFORMIN 500 MG TABLET PO SCH ×2 (09:35→17:24)
[2019-10-02] MEDS: TIOTROPIUM OLODATEROL INH SCH ×2 (10:22→20:38)
[2019-10-02] MEDS: INSULIN LISPRO 1 UNIT/0.01 ML UNIT SQ SCH ×6 (12:27→22:45)
[2019-10-02] MEDS: cefTRIAXone 2 GM in DEXTROSE 5% IN WATER 50 ML IV SCH (14:11)
[2019-10-02] MEDS ORDERED: INSULIN GLARGINE, HUMAN 1 UNIT/0.01 ML SQ ONE ×2 (17:33→18:42)
[2019-10-02] MEDS: AZITHROMYCIN 500 MG in DEXTROSE 5% IN WATER 250 ML IV SCH (20:37)
[2019-10-02] MEDS: ATORVASTATIN 40 MG TABLET PO SCH (20:37)
[2019-10-03] MEDS: INSULIN LISPRO 1 UNIT/0.01 ML UNIT SQ SCH ×7 (00:44→23:45)
[2019-10-03] MEDS: LEVALBUTEROL 0.63 MG/3 ML AMPUL.NEB NEB SCH ×4 (00:46→20:26)
[2019-10-03 06:45] LABS: ALT/SGPT 31 U/l (0-40); AST/SGOT 21 U/l (0-37); Albumin 3.5 gm/dL (3.2-5.2); Albumin/Globulin Ratio 0.9 (1.0-2.3); Alkaline Phosphatase 64 U/L (39-117); Bilirubin,Direct < 0.2 mg/dL (0.0-0.3); Bilirubin,Total 0.4 mg/dL (0.0-1.0); Blood Urea Nitrogen 17 mg/dl (8-23); Calcium 9.5 mg/dl (8.6-10.4); Carbon Dioxide 18 mmol/L (22-30); Chloride 102 mmol/L (96-108); Globulin 3.7 gm/dL (2.2-3.7); Glomerular Filtration Rate 90; Glucose 231 mg/dL (70-105); Lactate Dehydrogenase 174 U/L (94-250); Triglycerides 114 mg/dl (<150); Uric Acid 4.7 mg/dL (2.5-8.0)
[2019-10-03] MEDS: BUDESONIDE 0.5 MG/2 ML AMPUL.NEB NEB SCH ×3 (07:04→20:25)
[2019-10-03] MEDS: PANTOPRAZOLE 40 MG TABLET PO SCH (07:12)
[2019-10-03] MEDS: metFORMIN 500 MG TABLET PO SCH ×2 (07:17→17:36)
--- NOTE | 2019-10-03 07:28 | Internal Med Progress Note ---
SUBJECTIVE Subjective Patient information: Note initiated : 10/03/19 at 7:24 am Service Date, if different from initiated Date: [] Patient: Luis Carlos Bran 69 y/o M admitted on 10/01/19 for Chest pain. Chief Complaint: [] Interval history: Mr. Bran is a 69 year old M prsents to the ED with pains of anterior chest pain across entire chest wall rat ing to back and shortness of breath progressing for last 3 days States the chest pain is sharp and worsened with his cough. He has a chronic cough, but the quality of such has not changed. In the ED with oxygen and subsiding of cough his chest pain improved. She is obtained from him and his who states that he typically struggles with oxygen and was going to be evaluated for home oxygen but this was unusual and that it continued to progress and get worse and with each day. In the ED he was found to be hypertensive, tachycardic, and tachypneic in the ED. Was placed on several liters of oxygen in the ED. Patient did miss his blood pressure medication today. He does not adhere to a d iabetic diet, his blood sugars commonly in the 300s. He is on metformin daily. He did have an episode of nausea vomiting x1 while in the car riding over here and felt it was related to motion sickness. Currently has no nausea. Does have occasional headaches. Does have chills but no fevers. Troponin was unremarkable. EKG showed sinus tach and did have some depression in anterior lateral leads. No old EKGs to compare. CTA of the chest showed no PE but did show bilateral lower lobe pneumonia greater on the left. He does have a history of COPD and lung cancer but is not on oxygen at home. As mentioned above is being evaluated outpatient for oxygen. He was also found to have a leukocytosis and an acidosis with elevated lactate 3.3. Also elevated beta hydroxybutyric acid and a blood glucose of 535. ABG had a normal pH. 7 Patient slept okay. Feeling little better today. Breathing better today deeper and decreased oxygen need. Occasional chest pain with coughing but otherwise unremarkable. Did have a fever overnight. Does not feel subjective fevers but has some chills. I gap closed. Will start subcu insulin titrate accordingly. Hemoglobin A1c 14.7, patient is only been on metformin and does not adhere to a diabetic diet. 10/02 Slept well. Feeling better. On room air at rest but becomes labored and increased oxygen needs with activity. Patient wants to be evaluated for home oxygen outpatient. Blood glucose improving with up titration of insulin. Review of Systems: denies headache/fever/chills/nausea/vomiting/chest or abdominal pain/diarrhea. Otherwise see above. Constitutional Vitals: Vital Signs Temp Pulse Resp BP Pulse Ox 98.2 F 83 41 H 144/96 92 10/03/19 00:01 10/03/19 06:00 10/03/19 06:00 10/03/19 05:00 10/03/19 06:00 Period Temp Pulse Resp BP Sys/Valdes Pulse Ox Last 24 Hr 97.4 F-98.4 F 73-102 15-46 114-156/50-121 92-100 Intake and Output 10/02/19 10/03/19 10/03/19 21:59 05:59 13:59 Intake Total 1250 Output Total 800 Balance 450 Weight 98.43 kg Intake & Output: Intake & Output 10/02/19 10/03/19 10/03/19 21:59 05:59 13:59 Intake Total 1250 Output Total 800 Balance 450 Weight 98.43 kg Intake: Nourishment/Supplement quantity 480 (ml) IV 50 Rocephin 2 gm In Dextrose 5% in 50 Water 50 ml @ 100 mls/hr IV Q24H [facility] Rx#:[id number] Oral 720 Output: Void Amount 800 Other: Meal Dinner Percent of Meal Consumed 50% Feeding Ability Independent Urine Appearance Clear Urine Color Pale Urine Odor Normal Stool Size Moderate Stool Color Brown Stool Consistency Normal for Patient Soft Formed Exam: General: Alert, Awake, No acute Distress Eyes/N/T: EOMI, Head/Neck: neck supple, CV: RRR, No murmurs, Pulm: diminished b/l, mild basilar rhonchi, no wheezing today, prolonged exp phase Abd: soft, nontender, +BS x4 Ext: no clubbing/cyanosis/edema Neuro: Alert, no focal deficits, moves all extremities, Skin: warm/dry OBJ DATA Labs CBC & Chem 7: 10/02/19 07:42 10/03/19 05:03 Labs: Abnormal Lab Results 07/03/20 07/02/20 07/02/20 05:03 07:42 05:04 WBC 14.7 H RBC 3.91 L Hgb 12.4 L Hct 37.0 L MPV 10.5 H Gran % Lymph % (Auto) Gran # Lymph # (Auto) Seg Neutrophils % Lymphocytes % VBG Lactic Acid Sodium Chloride Carbon Dioxide 18 L 21 L Anion Gap Glucose 231 H 164 H Hemoglobin A1c Osmolality Phosphorus 2.0 L 2.6 L ALT Globulin Albumin/Globulin Ratio 0.9 L Triglycerides 174 H Beta-Hydroxybutyrate Urine Protein Urine Glucose (UA) Urine Ketones Urine Occult Blood 10/01/19 10/01/19 10/01/19 22:00 17:44 17:21 WBC RBC Hgb Hct MPV Gran % Lymph % (Auto) Gran # Lymph # (Auto) Seg Neutrophils % Lymphocytes % VBG Lactic Acid Sodium Chloride Carbon Dioxide 18 L Anion Gap 18.0 H Glucose 341 H Hemoglobin A1c 14.7 H Osmolality 325 H Phosphorus ALT Globulin 4.0 H Albumin/Globulin Ratio 0.9 L Triglycerides 201 H Beta-Hydroxybutyrate Urine Protein 30 A Urine Glucose (UA) >=500 A Urine Ketones 20 A Urine Occult Blood 0.03 A 10/01/19 10/01/19 10/01/19 17:21 17:21 17:21 WBC RBC Hgb Hct MPV Gran % Lymph % (Auto) Gran # Lymph # (Auto) Seg Neutrophils % 87 H Lymphocytes % 9 L VBG Lactic Acid Sodium 129 L Chloride 90 L Carbon Dioxide 14 L Anion Gap 25.0 H Glucose 537 H* Hemoglobin A1c Osmolality Phosphorus ALT 44 H Globulin 4.2 H Albumin/Globulin Ratio Triglycerides Beta-Hydroxybutyrate 4.17 H Urine Protein Urine Glucose (UA) Urine Ketones Urine Occult Blood 10/01/19 10/01/19 17:21 17:17 WBC 19.2 H RBC Hgb Hct MPV 11.2 H Gran % 89.4 H Lymph % (Auto) 6.4 L Gran # 17.21 H Lymph # (Auto) 1.23 L Seg Neutrophils % Lymphocytes % VBG Lactic Acid 3.3 H Sodium Chloride Carbon Dioxide Anion Gap Glucose Hemoglobin A1c Osmolality Phosphorus ALT Globulin Albumin/Globulin Ratio Triglycerides Beta-Hydroxybutyrate Urine Protein Urine Glucose (UA) Urine Ketones Urine Occult Blood Meds: Medications Acetaminophen (Tylenol) 650 mg PO Q4-6HP PRN PRN Reason: PAIN/FEVER > 101 Amlodipine Besylate (Norvasc) 10 mg PO QDAY [facility] Last Admin: 10/02/19 09:32 Dose: 10 mg Documented by: Aspirin (Aspirin) 81 mg PO DAILY [facility] Last Admin: 10/02/19 09:32 Dose: 81 mg Documented by: Atorvastatin Calcium (Lipitor) 40 mg PO QHS [facility] Last Admin: 10/02/19 20:37 Dose: 40 mg Documented by: Budesonide (Pulmicort) 0.5 mg NEB Q12 [facility] Last Admin: 10/02/19 19:46 Dose: 0.5 mg Documented by: Dextrose (Dextrose 50%) 0 ml IV UD PRN PRN Reason: Hypoglycemia Diagnostic Test (Pha) (Accu-Chek) 1 each FS Q4 [facility] Last Admin: 10/03/19 07:14 Dose: 1 each Documented by: Docusate Sodium (Colace) 100 mg PO BID [facility] Last Admin: 10/02/19 20:37 Dose: 100 mg Documented by: Enoxaparin Sodium (Lovenox) 40 mg SQ DAILY [facility] Last Admin: 10/02/19 09:33 Dose: 40 mg Documented by: Fluoxetine HCl (Prozac) 20 mg PO DAILY [facility] Last Admin: 10/02/19 09:32 Dose: 20 mg Documented by: Glucose (Insta-Glucose) 15 gm PO PRN PRN PRN Reason: Hypoglycemia Magnesium Sulfate (Magnesium Sulfate) 2 gm in 50 mls @ 50 mls/hr IV UD PRN PRN Reason: Magnesium </= 1.6 Potassium Chloride 40 meq/ (Dextrose) 520 mls @ 130 mls/hr IV UD PRN PRN Reason: Potassium < 3 Ceftriaxone Sodium 2 gm/ (Dextrose) 50 mls @ 100 mls/hr IV Q24H [facility]; Protocol Last Infusion: 10/02/19 18:45 Dose: Infused Documented by: Azithromycin 500 mg/ Dextrose 250 mls @ 250 mls/hr IV Q24H [facility]; Protocol Stop: 10/03/19 21:59 Last Admin: 10/02/19 20:37 Dose: 250 mls/hr Documented by: Insulin Glargine (Lantus) 15 unit SQ DAILY [facility] Last Admin: 10/02/19 09:33 Dose: 15 units Documented by: Insulin Human Lispro (Humalog) 0 unit SQ Q4 [facility]; Protocol Last Admin: 10/03/19 07:17 Dose: 6 units Documented by: Labetalol HCl (Trandate) 0 mg IV Q2HP PRN PRN Reason: Hypertension Levalbuterol HCl (Xopenex) 0.63 mg NEB Q6HRT [facility] Last Admin: 10/03/19 00:46 Dose: 0.63 mg Documented by: Lisinopril (Zestril) 10 mg PO QDAY [facility] Last Admin: 10/02/19 09:32 Dose: 10 mg Documented by: Metformin HCl (Glucophage) 500 mg PO BIDCC [facility] Last Admin: 10/03/19 07:17 Dose: 500 mg Documented by: Methylprednisolone Sodium Succinate (Solu-Medrol) 62.5 mg IV Q12 [facility] Last Admin: 10/02/19 20:37 Dose: 62.5 mg Documented by: Nitroglycerin (Nitrostat) 0.4 mg SL Q5M PRN PRN Reason: Chest Pain Ondansetron HCl (Zofran) 4 mg IV Q4-6HP PRN PRN Reason: Nausea And Vomiting Pantoprazole Sodium (Protonix) 40 mg PO QAMAC [facility] Last Admin: 10/03/19 07:12 Dose: 40 mg Documented by: Tiotropium- Olodaterol [Stiolto Respimat] Inh 2 dose INH Q12 [facility] Last Admin: 10/02/19 20:38 Dose: Not Given Documented by: Potassium Chloride (Kdur) 40 meq PO UD PRN PRN Reason: Potssium is 3-3.5 Last Admin: 10/02/19 11:00 Dose: 40 meq Documented by: A/P Narrative A/P Narrative: A: *PNA: improved *SIRS: improved *Acute respiratory failure: -taken off O2 yesterday while in bed, will monitor closely for O2 need, needs with ambulation *AECOPD: Follows with Dr. Delgado, being evaluated outpatient for home oxygen *Metabolic acidosis/lactic acidosis, mixed respiratory alkalosis from compensat ing: likely from hypoxia/dka -resolved *DM with DKA: A1c 14.7 -only on metformin at home, A1c 14.7 *Pseudohyponatremia: resolved *HTN Urgency vs Emergency if caused ST changes on EKG(ekg changes normalized on f/u): CTA chest no dissection -Chest pain MSK/pleuritic/pulm. pt did miss taking home meds on morning of admit -troponin negative -Improved *h/o NSCLC: *Depression: P: -Rocephin/Azithro, pending SC/BC -supp O2 wean prn, RT to asses for home O2 while ambulating prior to d/c -Steroids(wean), nebs, home IH's -IS/Acapella -basal insulin(titrate - 30bid), cont metformin, -restarted BP meds and prn IV -PT/OT -ppx: Lovenox DNR Time Spent With Patient Time: Total time spent is greater than 50% in coordination of care (as documented) at patient's floor/unit and/or counseling patient:
[2019-10-03] MEDS ORDERED: predniSONE 20 MG TABLET PO SCH (08:00)
[2019-10-03] MEDS ORDERED: DEXTROSE 50% 50 ML VIAL IV PRN (08:06)
[2019-10-03] MEDS ORDERED: DEXTROSE 31 GM ORAL.SUSP PO PRN (08:06)
[2019-10-03] MEDS ORDERED: MAGNESIUM SULFATE 2 GM/50 ML BAG IV PRN (08:06)
[2019-10-03] MEDS ORDERED: NITROGLYCERIN 0.4 MG TAB.SUBL SL PRN (08:06)
[2019-10-03] MEDS ORDERED: POTASSIUM CHLORIDE 20 MEQ TABLET PO PRN (08:06)
[2019-10-03] MEDS ORDERED: LABETALOL 5 MG/ML ML IV PRN (08:06)
[2019-10-03] MEDS ORDERED: ACETAMINOPHEN 325 MG TABLET PO PRN (08:06)
[2019-10-03] MEDS ORDERED: ONDANSETRON 4 MG/2 ML VIAL IV PRN (08:06)
[2019-10-03] MEDS ORDERED: POTASSIUM CHLORIDE 40 MEQ in DEXTROSE 5% IN WATER 500 ML IV PRN (08:06)
[2019-10-03] MEDS ORDERED: INSULIN GLARGINE, HUMAN 1 UNIT/0.01 ML SQ SCH (09:00)
[2019-10-03] MEDS: ASPIRIN 81 MG TAB.CHEW PO SCH (09:01)
[2019-10-03] MEDS: DOCUSATE SODIUM 100 MG CAPSULE PO SCH ×2 (09:02→20:31)
[2019-10-03] MEDS: ENOXAPARIN 40 MG/0.4 ML SYRINGE SQ SCH (09:02)
[2019-10-03] MEDS: INSULIN GLARGINE, HUMAN 1 UNIT/0.01 ML SQ SCH ×2 (09:02→20:30)
[2019-10-03] MEDS: NEUTRA PHOS 1 PACKET PO SCH ×2 (09:02→20:29)
[2019-10-03] MEDS: STIOLTO RESPIMAT INH SCH ×2 (09:03→20:28)
[2019-10-03] MEDS: FLUoxetine HCL 20 MG CAPSULE PO SCH (09:03)
[2019-10-03] MEDS: amLODIPine 10 MG TABLET PO SCH (09:03)
[2019-10-03] MEDS: predniSONE 20 MG TABLET PO SCH ×2 (09:03→20:31)
[2019-10-03] MEDS: LISINOPRIL 10 MG TABLET PO SCH (09:04)
[2019-10-03] MEDS: cefTRIAXone 2 GM in DEXTROSE 5% IN WATER 50 ML IV SCH (09:05)
[2019-10-03] MEDS: ATORVASTATIN 40 MG TABLET PO SCH (20:31)
[2019-10-03] MEDS ORDERED: AZITHROMYCIN 500 MG in DEXTROSE 5% IN WATER 250 ML IV SCH (21:00)
[2019-10-03] MEDS ORDERED: INSULIN GLARGINE, HUMAN 1 UNIT/0.01 ML SQ ONE ×2 (21:14→22:06)
[2019-10-04] MEDS: LEVALBUTEROL 0.63 MG/3 ML AMPUL.NEB NEB SCH ×4 (00:47→19:47)
[2019-10-04] MEDS: INSULIN LISPRO 1 UNIT/0.01 ML UNIT SQ SCH ×5 (03:55→19:58)
[2019-10-04] MEDS: BUDESONIDE 0.5 MG/2 ML AMPUL.NEB NEB SCH ×2 (07:08→19:47)
--- NOTE | 2019-10-04 07:27 | Internal Med Progress Note ---
SUBJECTIVE Subjective Patient information: Note initiated : 10/04/19 at 7:23 am Service Date, if different from initiated Date: [] Patient: Luis Carlos Bran 69 y/o M admitted on 10/03/19 for Chest pain. Chief Complaint: [] Interval history: Narrative: : Mr. Bran is a 69 year old M prsents to the ED with pains of anterior chest pain across entire chest wall rating to back and shortness of breath progressing for last 3 days States the chest pain is sharp and worsened with his cough. He has a chronic cough, but the quality of such has not changed. In the ED with oxygen and subsiding of cough his chest pain improved. She is obtained from him and his who states that he typically struggles with oxygen and was going to be evaluated for home oxygen but this was unusual and that it continued to progress and get worse and with each day. In the ED he was found to be hypertensive, tachycardic, and tachypneic in the ED. Was placed on several liters of oxygen in the ED. Patient did miss his blood pressure medication today. He does not adhere to a diabetic diet, his blood sugars commonly in the 300s. He is on metformin daily. He did have an episode of nausea vomiting x1 while in the car riding over here and felt it was related to motion sickness. Currently has no nausea. Does have occasional headaches. Does have chills but no fevers. Troponin was unremarkable. EKG showed sinus tach and did have some depression in anterior lateral leads. No old EKGs to compare. CTA of the chest showed no PE but did show bilateral lower lobe pneumonia greater on the left. He does have a history of COPD and lung cancer but is not on oxygen at home. As mentioned above is being evaluated outpatient for oxygen. He was also found to have a leukocytosis and an acidosis with elevated lactate 3.3. Also elevated beta hydroxybutyric acid and a blood glucose of 535. ABG had a normal pH. 7 Patient slept okay. Feeling little better today. Breathing better today deeper and decreased oxygen need. Occasional chest pain with coughing but otherwise unremarkable. Did have a fever overnight. Does not feel subjective fevers but has some chills. I gap closed. Will start subcu insulin titrate accordingly. Hemoglobin A1c 14.7, patient is only been on metformin and does not adhere to a diabetic diet. 10/02 Slept well. Feeling better. On room air at rest but becomes labored and increased oxygen needs with activity. Patient wants to be evaluated for home oxygen outpatient. Blood glucose improving with up titration of insulin. 10/03 Slept better last night. Feeling better. His cough appears to be close to baseline. Shortness of breath is improving. Blood glucose still high but improving with titration of insulin. Start weaning down glucocorticoids. Review of Systems: denies headache/fever/chills/nausea/vomiting/chest or abdominal pain/. Otherwise see above. Constitutional Vitals: Vital Signs Temp Pulse Resp BP Pulse Ox 96.9 F L 83 20 142/81 98 10/04/19 03:45 10/04/19 07:16 10/04/19 07:16 10/04/19 03:45 10/04/19 07:08 Period Temp Pulse Resp BP Sys/Valdes Pulse Ox Last 24 Hr 96.9 F-98.4 F 75-105 16-27 125-168/69-99 94-100 Intake and Output 10/03/19 10/04/19 10/04/19 21:59 05:59 13:59 Intake Total 750 375 Output Total 576 400 Balance 174 -25 Weight 97.976 kg Intake & Output: Intake & Output 10/03/19 10/04/19 10/04/19 21:59 05:59 13:59 Intake Total 750 375 Output Total 576 400 Balance 174 -25 Weight 97.976 kg Intake: IV 250 Zithromax 500 mg In Dextrose 5% 250 in Water 250 ml @ 250 mls/hr IV Q24H [facility] Rx#:[id number] Oral 500 375 Output: Void Amount 575 400 # of times incontinent of urine 1 Other: Stool Size Small # Voids 1 # Bowel Movements 1 1 Exam: General: Alert, Awake, No acute Distress Eyes/N/T: EOMI, Head/Neck: neck supple, CV: RRR, No murmurs, Pulm: diminished b/l but a little better today, mild basilar rhonchi, no wheezing today, prolonged exp phase Abd: soft, nontender, +BS x4 Ext: no clubbing/cyanosis/edema Neuro: Alert, no focal deficits, moves all extremities, Skin: warm/dry OBJ DATA Labs CBC & Chem 7: 10/02/19 07:42 10/03/19 05:03 Labs: Abnormal Lab Results 10/03/19 10/02/19 10/02/19 05:03 07:42 05:04 WBC 14.7 H RBC 3.91 L Hgb 12.4 L Hct 37.0 L MPV 10.5 H Gran % Lymph % (Auto) Gran # Lymph # (Auto) Seg Neutrophils % Lymphocytes % VBG Lactic Acid Sodium Chloride Carbon Dioxide 18 L 21 L Anion Gap Glucose 231 H 164 H Hemoglobin A1c Osmolality Phosphorus 2.0 L 2.6 L ALT Globulin Albumin/Globulin Ratio 0.9 L Triglycerides 174 H Beta-Hydroxybutyrate Urine Protein Urine Glucose (UA) Urine Ketones Urine Occult Blood 10/01/19 10/01/19 10/01/19 22:00 17:44 17:21 WBC RBC Hgb Hct MPV Gran % Lymph % (Auto) Gran # Lymph # (Auto) Seg Neutrophils % Lymphocytes % VBG Lactic Acid Sodium Chloride Carbon Dioxide 18 L Anion Gap 18.0 H Glucose 341 H Hemoglobin A1c 14.7 H Osmolality 325 H Phosphorus ALT Globulin 4.0 H Albumin/Globulin Ratio 0.9 L Triglycerides 201 H Beta-Hydroxybutyrate Urine Protein 30 A Urine Glucose (UA) >=500 A Urine Ketones 20 A Urine Occult Blood 0.03 A 10/01/19 10/01/19 10/01/19 17:21 17:21 17:21 WBC RBC Hgb Hct MPV Gran % Lymph % (Auto) Gran # Lymph # (Auto) Seg Neutrophils % 87 H Lymphocytes % 9 L VBG Lactic Acid Sodium 129 L Chloride 90 L Carbon Dioxide 14 L Anion Gap 25.0 H Glucose 537 H* Hemoglobin A1c Osmolality Phosphorus ALT 44 H Globulin 4.2 H Albumin/Globulin Ratio Triglycerides Beta-Hydroxybutyrate 4.17 H Urine Protein Urine Glucose (UA) Urine Ketones Urine Occult Blood 10/01/19 10/01/19 17:21 17:17 WBC 19.2 H RBC Hgb Hct MPV 11.2 H Gran % 89.4 H Lymph % (Auto) 6.4 L Gran # 17.21 H Lymph # (Auto) 1.23 L Seg Neutrophils % Lymphocytes % VBG Lactic Acid 3.3 H Sodium Chloride Carbon Dioxide Anion Gap Glucose Hemoglobin A1c Osmolality Phosphorus ALT Globulin Albumin/Globulin Ratio Triglycerides Beta-Hydroxybutyrate Urine Protein Urine Glucose (UA) Urine Ketones Urine Occult Blood Meds: Medications Acetaminophen (Tylenol) 650 mg PO Q4-6HP PRN PRN Reason: PAIN/FEVER > 101 Amlodipine Besylate (Norvasc) 10 mg PO QDAY [facility] Last Admin: 10/03/19 09:03 Dose: 10 mg Documented by: Aspirin (Aspirin) 81 mg PO DAILY [facility] Last Admin: 10/03/19 09:01 Dose: 81 mg Documented by: Atorvastatin Calcium (Lipitor) 40 mg PO QHS [facility] Last Admin: 10/03/19 20:31 Dose: 40 mg Documented by: Budesonide (Pulmicort) 0.5 mg NEB Q12 [facility] Last Admin: 10/04/19 07:08 Dose: 0.5 mg Documented by: Dextrose (Dextrose 50%) 0 ml IV UD PRN PRN Reason: Hypoglycemia Diagnostic Test (Pha) (Accu-Chek) 1 each FS Q4 [facility] Last Admin: 10/04/19 03:55 Dose: 1 each Documented by: Docusate Sodium (Colace) 100 mg PO BID [facility] Last Admin: 10/03/19 20:31 Dose: 100 mg Documented by: Enoxaparin Sodium (Lovenox) 40 mg SQ DAILY [facility] Last Admin: 10/03/19 09:02 Dose: 40 mg Documented by: Fluoxetine HCl (Prozac) 20 mg PO DAILY [facility] Last Admin: 10/03/19 09:03 Dose: 20 mg Documented by: Glucose (Insta-Glucose) 15 gm PO PRN PRN PRN Reason: Hypoglycemia Ceftriaxone Sodium 2 gm/ (Dextrose) 50 mls @ 100 mls/hr IV Q24H [facility]; Protocol Last Infusion: 10/03/19 09:40 Dose: Infused Documented by: Magnesium Sulfate (Magnesium Sulfate) 2 gm in 50 mls @ 50 mls/hr IV UD PRN PRN Reason: Magnesium </= 1.6 Potassium Chloride 40 meq/ (Dextrose) 520 mls @ 130 mls/hr IV UD PRN PRN Reason: Potassium < 3 Insulin Glargine (Lantus) 10 unit SQ ONCE ONE Stop: 10/03/19 21:15 Last Admin: 10/03/19 22:04 Dose: Not Given Documented by: Insulin Glargine (Lantus) 35 unit SQ BID [facility] Insulin Human Lispro (Humalog) 0 unit SQ Q4 [facility]; Protocol Last Admin: 10/04/19 03:55 Dose: 4 unit Documented by: Labetalol HCl (Trandate) 0 mg IV Q2HP PRN PRN Reason: Hypertension Levalbuterol HCl (Xopenex) 0.63 mg NEB Q6HRT [facility] Last Admin: 10/04/19 07:08 Dose: 0.63 mg Documented by: Lisinopril (Zestril) 10 mg PO QDAY [facility] Last Admin: 10/03/19 09:04 Dose: 10 mg Documented by: Metformin HCl (Glucophage) 500 mg PO BIDCC [facility] Last Admin: 10/03/19 17:36 Dose: 500 mg Documented by: Nitroglycerin (Nitrostat) 0.4 mg SL Q5M PRN PRN Reason: Chest Pain Ondansetron HCl (Zofran) 4 mg IV Q4-6HP PRN PRN Reason: Nausea And Vomiting Pantoprazole Sodium (Protonix) 40 mg PO QAMAC [facility] [Stiolto Respimat] (Inhaler) 2 dose INH Q12 [facility] Last Admin: 10/03/19 20:28 Dose: Not Given Documented by: Potassium Chloride (Kdur) 40 meq PO UD PRN PRN Reason: Potssium is 3-3.5 Prednisone (Prednisone) 40 mg PO BID [facility] Last Admin: 10/03/19 20:31 Dose: 40 mg Documented by: A/P Narrative A/P Narrative: A: *PNA: improved *AECOPD: Follows with Dr. Delgado, being evaluated outpatient for home oxygen -improving, now weaning steroids *SIRS: improved *Acute respiratory failure: -on room air while in bed, but needs with ambulation *Metabolic acidosis/lactic acidosis, mixed respiratory alkalosis from compensating: likely from hypoxia/dka -resolved *DM with DKA: A1c 14.7 -only on metformin at home, A1c 14.7 -BG still high but improving with uptitration of insulin *Pseudohyponatremia: resolved *HTN Urgency vs Emergency if caused ST changes on EKG(ekg changes normalized on f/u): CTA chest no dissection -Chest pain MSK/pleuritic/pulm. pt did miss taking home meds on morning of admit -troponin negative -Improved *h/o NSCLC: *Depression: P: -Rocephin/Azithro, -supp O2 wean prn, RT to asses for home O2 while ambulating prior to d/c -Steroids(wean), nebs, home IH's -IS/Acapella -basal insulin(titrate - 35bid), cont metformin, -cont home BP meds -PT/OT -ppx: Lovenox DNR Time Spent With Patient Time: Total time spent is greater than 50% in coordination of care (as documented) at patient's floor/unit and/or counseling patient:
[2019-10-04] MEDS: predniSONE 20 MG TABLET PO SCH (08:22)
[2019-10-04] MEDS: PANTOPRAZOLE 40 MG TABLET PO SCH (08:22)
[2019-10-04] MEDS: metFORMIN 500 MG TABLET PO SCH ×2 (08:23→16:37)
--- NOTE | 2019-10-04 08:46 | Discharge Summary ---
Discharge Provider Provider Patient information: Note initiated : 10/04/19 at 8:43 am Service Date, if different from initiated Date: [] Patient: uLis Carlos Bran 69 y/o M admitted on 10/03/19 for Chest pain. Chief Complaint: [] Date of admission: 10/03/19 08:07 Discharge date: 10/05/19 Primary care physician: Jaime Rios Discharge Meds Discharge Medications Active and Home Medications: Home Medications albuterol sulfate 2 puff INHALATION Q6H PRN 10/01/19 [History Confirmed 10/02/19 Last Taken Unknown] amlodipine 10 mg PO QDAY 10/01/19 [History Confirmed 10/02/19 Last Taken Unknown] aspirin 81 mg PO QDAY 10/01/19 [History Confirmed 10/02/19 Last Taken Unknown] atorvastatin 40 mg PO QHS 10/01/19 [History Confirmed 10/02/19 Last Taken Unknown] cholecalciferol (vitamin D3) 25 mcg PO QDAY 10/01/19 [History Confirmed 10/02/19 Last Taken Unknown] fluoxetine 20 mg PO QDAY 10/01/19 [History Confirmed 10/02/19 Last Taken Unknown] ipratropium-albuterol 3 ml INHALATION Q6H PRN 10/01/19 [History Confirmed 10/02/19 Last Taken Unknown] lisinopril 10 mg PO QDAY 10/01/19 [History Confirmed 10/02/19 Last Taken Unknown] metformin 500 mg PO BID 10/01/19 [History Confirmed 10/02/19 Last Taken Unknown] mometasone [Asmanex HFA] 2 puff INHALATION BID 10/01/19 [History Confirmed 10/02/19 Last Taken Unknown] tiotropium-olodaterol [Stiolto Respimat] 2 puff INHALATION Q12 10/01/19 [History Confirmed 10/02/19 Last Taken 09/30/19 09:00] COURSE Hospital Course Hospital Course: Mr. Bran is a 69 year old M prsents to the ED with pains of anterior chest pain across entire chest wall rating to back and shortness of breath progressing for last 3 days States the chest pain is sharp and worsened with his cough. He has a chronic cough, but the quality of such has not changed. In the ED with oxygen and subsiding of cough his chest pain improved. She is obtained from him and his who states that he typically struggles with oxygen and was going to be evaluated for home oxygen but this was unusual and that it continued to progress and get worse and with each day. In the ED he was found to be hypertensive, tachycardic, and tachypneic in the ED. Was placed on several liters of oxygen in the ED. Patient did miss his blood pressure medication today. He does not adhere to a diabetic diet, his blood sugars commonly in the 300s. He is on metformin daily. He did have an episode of nausea vomiting x1 while in the car riding over here and felt it was related to motion sickness. Currently has no nausea. Does have occasional headaches. Does have chills but no fevers. Troponin was unremarkable. EKG showed sinus tach and did have some depression in anterior lateral leads. No old EKGs to compare. CTA of the chest showed no PE but did show bilateral lower lobe pneumonia greater on the left. He does have a history of COPD and lung cancer but is not on oxygen at home. As mentioned above is being evaluated outpatient for oxygen. He was also found to have a leukocytosis and an acidosis with elevated lactate 3.3. Also elevated beta hydroxybutyric acid and a blood glucose of 535. ABG had a normal pH. 10/01 Patient slept okay. Feeling little better today. Breathing better today deeper and decreased oxygen need. Occasional chest pain with coughing but otherwise unremarkable. Did have a fever overnight. Does not feel subjective fevers but has some chills. I gap closed. Will start subcu insulin titrate accordingly. Hemoglobin A1c 14.7, patient is only been on metformin and does not adhere to a diabetic diet. 10/02 Slept well. Feeling better. On room air at rest but becomes labored and increased oxygen needs with activity. Patient wants to be evaluated for home oxygen outpatient. Blood glucose improving with up titration of insulin. 10/03 Slept better last night. Feeling better. His cough appears to be close to baseline. Shortness of breath is improving. Blood glucose still high but improving with titration of insulin. Start weaning down glucocorticoids. 10/04 Doing well. For much better. No new complaints. Blood glucose improving with titration of insulin. A: *PNA: improved *AECOPD: Follows with Dr. Delgado, being evaluated outpatient for home oxygen -improving, now weaning steroids *SIRS: improved *Acute respiratory failure: -on room air while in bed, but needs with ambulation *Metabolic acidosis/lactic acidosis, mixed respiratory alkalosis from compensating: likely from hypoxia/dka -resolved *DM with DKA: A1c 14.7 -only on metformin at home, A1c 14.7 -BG still high but improving with uptitration of insulin *Pseudohyponatremia: resolved *HTN Urgency vs Emergency if caused ST changes on EKG(ekg changes normalized on f/u): CTA chest no dissection -Chest pain MSK/pleuritic/pulm. pt did miss taking home meds on morning of admit -troponin negative -Improved *h/o NSCLC: Discharge diagnosis: Pneumonia COPD Sirs acute respiratory failure metabolic acidosis lactic aci Secondary discharge diagnosis: Diabetes with DKA hypertensive urgency/emergency depression Time Spent with Patient Time attestation: Total time spent providing and/or coordinating discharge services: Time spent: Greater than 30 minutes EXAM Constitutional Vitals: Temp Pulse Resp BP Pulse Ox 97.5 F 85 22 130/76 95 10/04/19 08:00 10/04/19 08:00 10/04/19 08:00 10/04/19 08:00 10/04/19 08:00 Discharge Data Data Completed and Pending Labs on day of discharge: Preliminary micro results at discharge 10/01/19 18:33 Blood Culture - Preliminary Blood 10/01/19 18:28 Blood Culture - Preliminary Blood Discharge Plan Patient/Caregiver Discharge Instructions Activity: increase activity as tolerated Diet: Consistent Carbohydrate Activity Restrictions/Additional Instructions: Monitor blood glucose twice daily and bring log to primary care provider Prescriptions: New levofloxacin [Levaquin] 750 mg tablet 750 mg PO QDAY Qty: 1 RF: 0 prednisone 10 mg tablet See Rx Instructions .ROUTE .COMPLEX Qty: 1 RF: 0 Lantus Solostar U-100 Insulin 100 unit/mL (3 mL) insulin pen 40 unit SUB-Q BID Qty: 15 RF: 0 codeine-guaifenesin 10-100 mg/5 mL Liquid 10 ml PO Q4HP PRN (Reason: Cough) Qty: 200 RF: 0 Continued atorvastatin 40 mg Tablet 40 mg PO QHS RF: 0 metformin 500 mg Tablet 500 mg PO BID RF: 0 ipratropium-albuterol 0.5 mg-3 mg(2.5 mg base)/3 mL Solution For Nebulization 3 ml INHALATION Q6H PRN (Reason: Shortness Of Breath Or Wheezing) RF: 0 aspirin 81 mg Tablet,Delayed Release (Dr/Ec) 81 mg PO QDAY RF: 0 amlodipine 10 mg Tablet 10 mg PO QDAY RF: 0 fluoxetine 20 mg Tablet 20 mg PO QDAY RF: 0 lisinopril 10 mg Tablet 10 mg PO QDAY RF: 0 albuterol sulfate 90 mcg/actuation Hfa Aerosol Inhaler 2 puff INHALATION Q6H PRN (Reason: Shortness Of Breath Or Wheezing) RF: 0 cholecalciferol (vitamin D3) 25 mcg (1,000 unit) Tablet 25 mcg PO QDAY RF: 0 Asmanex HFA 200 mcg/actuation Hfa Aerosol Inhaler 2 puff INHALATION BID RF: 0 Stiolto Respimat 2.5-2.5 mcg/actuation Mist 2 puff INHALATION Q12 RF: 0 Follow Up Plan Follow up with: Jaime Rios ARNP [Primary Care Provider] - Patient Disposition: Home, Self-Care Rehab Potential: Fair Overall status at discharge: patient is progressing back to baseline Discharge Orders: Discharge Order (Routine); Ordered 10/05/19 Ordered By: Ziggy Alcazar
[2019-10-04] MEDS: DOCUSATE SODIUM 100 MG CAPSULE PO SCH ×2 (09:07→20:07)
[2019-10-04] MEDS: FLUoxetine HCL 20 MG CAPSULE PO SCH (09:07)
[2019-10-04] MEDS: amLODIPine 10 MG TABLET PO SCH (09:07)
[2019-10-04] MEDS: LISINOPRIL 10 MG TABLET PO SCH (09:07)
[2019-10-04] MEDS: ASPIRIN 81 MG TAB.CHEW PO SCH (09:07)
[2019-10-04] MEDS: ENOXAPARIN 40 MG/0.4 ML SYRINGE SQ SCH (09:08)
[2019-10-04] MEDS: INSULIN GLARGINE, HUMAN 1 UNIT/0.01 ML SQ SCH ×2 (09:08→19:58)
[2019-10-04] MEDS: cefTRIAXone 2 GM in DEXTROSE 5% IN WATER 50 ML IV SCH (09:46)
[2019-10-04] MEDS: STIOLTO RESPIMAT INH SCH ×2 (09:46→22:21)
[2019-10-04] MEDS: guaiFENesin/CODEINE 10 ML UDC PO PRN ×2 (15:37→19:48)
[2019-10-04] MEDS ORDERED: BENZOCAINE/MENTHOL 1 LOZENGE PO PRN (15:48)
[2019-10-04] MEDS: ATORVASTATIN 40 MG TABLET PO SCH (20:07)
[2019-10-05] MEDS: INSULIN LISPRO 1 UNIT/0.01 ML UNIT SQ SCH ×3 (00:22→07:32)
[2019-10-05] MEDS: guaiFENesin/CODEINE 10 ML UDC PO PRN (00:22)
[2019-10-05] MEDS: LEVALBUTEROL 0.63 MG/3 ML AMPUL.NEB NEB SCH ×2 (00:23→07:10)
[2019-10-05] MEDS: BUDESONIDE 0.5 MG/2 ML AMPUL.NEB NEB SCH (07:10)
[2019-10-05] MEDS: PANTOPRAZOLE 40 MG TABLET PO SCH (07:31)
[2019-10-05] MEDS: amLODIPine 10 MG TABLET PO SCH (08:37)
[2019-10-05] MEDS: ASPIRIN 81 MG TAB.CHEW PO SCH (08:37)
[2019-10-05] MEDS: predniSONE 20 MG TABLET PO SCH (08:37)
[2019-10-05] MEDS: metFORMIN 500 MG TABLET PO SCH (08:37)
[2019-10-05] MEDS: LISINOPRIL 10 MG TABLET PO SCH (08:37)
[2019-10-05] MEDS: FLUoxetine HCL 20 MG CAPSULE PO SCH (08:37)
[2019-10-05] MEDS: ENOXAPARIN 40 MG/0.4 ML SYRINGE SQ SCH (08:38)
[2019-10-05] MEDS: cefTRIAXone 2 GM in DEXTROSE 5% IN WATER 50 ML IV SCH (08:39)
[2019-10-05] MEDS: DOCUSATE SODIUM 100 MG CAPSULE PO SCH (08:39)
[2019-10-05] MEDS: STIOLTO RESPIMAT INH SCH (08:39)
[2019-10-05] MEDS ORDERED: INSULIN GLARGINE, HUMAN 1 UNIT/0.01 ML SQ SCH (09:00)
== END 2019-10-05 11:45 | disposition home or self-care (01) | DRG 190 ==
LOC: ED 17:00 → ICU 21:36 → MEDSUR 10-03 13:41
PROVIDERS: ADMIT Internal Medicine; ATTEND Internal Medicine